=== PATIENT | male | born 1935 | race Caucasian/White ===

== ENCOUNTER 2019-07-30 11:03 | Emergency (ER) | payer OTHER ==
[~2019-07-30] VITALS: Ht 172.7 cm; Wt 74.8 kg
[2019-07-30 11:10] VITALS: Ht 172.7 cm; Wt 74.8 kg
[2019-07-30 11:34] LABS: BASOPHIL % 1.6 % (0-2); PLATELET COUNT 253 x10^3mcL (130-400); RED CELL DISTRIBUTION WIDTH 13.5 % (11.5-14.5)
[2019-07-30 11:45] LABS: CALCIUM 9.1 mg/dL (8.5-10.1); CARBON DIOXIDE 28.7 mmol/L (21-32); CHLORIDE SERUM 102 mmol/L (98-107); CREATININE SERUM 0.8 mg/dL (0.7-1.3); GLUCOSE SERUM 96 mg/dL (74-106); POTASSIUM SERUM 4.6 mmol/L (3.5-5.1); SODIUM SERUM 139 mmol/L (136-145)
[2019-07-30 11:50] LABS: ALKALINE PHOSPHATASE 109 U/L (46-116); ALT/SGPT 29 U/L (16-63); AST/SGOT 20 U/L (15-37); BILIRUBIN TOTAL 1.18 mg/dL (0.20-1.00); TOTAL PROTEIN, SERUM 7.4 g/dL (6.4-8.2)
[2019-07-30 11:51] LABS: ALBUMIN 3.3 g/dL (3.4-5.0)
[2019-07-30 13:57] VITALS: BP 110/64
== END 2019-07-30 13:58 | disposition home or self-care (01) ==
LOC: ED 11:03
DX: R05 Cough (principal); R53.1 Weakness; M79.10 Myalgia, unspecified site; R50.9 Fever, unspecified; R63.0 Anorexia; R06.02 Shortness of breath
CPT/HCPCS: 36415; Q0092